=== PATIENT | male | born 2000 | race Caucasian/White ===

== ENCOUNTER 2023-12-06 13:43 | Emergency (ER) | payer BC ==
[2023-12-06 14:29] LABS: APPEARANCE,URINE CLEAR; BILIRUBIN,URINE NEGATIVE (NEGATIVE); COLOR,URINE YELLOW; GLUCOSE,URINE NEGATIVE (NEGATIVE); KETONES,URINE NEGATIVE (NEGATIVE); LEUKOCYTE ESTERASE,URINE NEGATIVE (NEGATIVE); NITRITE,URINE NEGATIVE (NEGATIVE); OCCULT BLOOD,URINE NEGATIVE (NEGATIVE); PROTEIN,URINE NEGATIVE (NEGATIVE); UROBILINOGEN,URINE 0.2 EU/dL (<2.0)
[2023-12-06 15:59] LABS: C. TRACHOMATIS BY PCR NOT DETECTED; N. GONORRHOEAE BY PCR NOT DETECTED
== END 2023-12-06 16:30 | disposition home or self-care (01) ==
LOC: MW.ED 13:43
DX: Z11.3 Encounter for screening for infections with a predominantly sexual mode of transmission (principal); Z75.8 Other problems related to medical facilities and other health care
CPT/HCPCS: 36415; 81003; 86592; 87389; 87491; 87591; 99283; 99284